=== PATIENT | female | born 1955 | race Two or more races ===

== ENCOUNTER 2016-07-30 22:26 | Emergency (ER) | payer OTHER ==
[2016-07-30 22:32] VITALS: BP 135/78; PULSE 91; TEMP 97.9; BMI 30.6
--- NOTE | 2016-07-30 23:25 | PDOC ---
History of Present Illness - General History Source: Patient Exam Limitations: No Limitations - History of Present Illness Initial Comments: 07/31/16 00:06 The patient is a 60-year-old female with a significant past medical history of hypertension, hypercholesterolemia, and hypothyroidism and presents to the emergency department with chest pain since 7pm tonight. The patient states the pain is located to the midsternal region, and is non-radiating. The patient reports the chest pain is exacerbated with inspiration. She states she has never had this pain before. The patient last ate at 4pm today. She denies any recent travel. The patient denies shortness of breath, headache and dizziness. The patient denies fever, chills, nausea, vomit, diarrhea and constipation. The patient denies dysuria, frequency, urgency and hematuria. Allergies: NKDA Past Surgical History: Social History: Denies toxic habits PCP: Dr. Ye Briones <Heena Ramires - Last Filed: 07/31/16 00:06> <Leah Hoover - Last Filed: 07/31/16 03:29> - General Chief Complaint: Chest Pain Stated Complaint: CHEST PAIN Time Seen by Provider: 07/30/16 23:16 Past History <Heena Ramires - Last Filed: 07/31/16 00:06> - Past Medical History Hypercholesterolemia: Yes Thyroid Disease: Yes (HYPOthyroidism) - Psycho/Social/Smoking Cessation Hx Anxiety: No Suicidal Ideation: No Smoking History: Never smoked Have you smoked in the past 12 months: No Hx Alcohol Use: No Drug/Substance Use Hx: No Substance Use Type: None <Leah Hoover - Last Filed: 07/31/16 03:29> - Past Medical History Allergies/Adverse Reactions: Allergies Allergy/AdvReac Type Severity Reaction Status Date / Time No Known Allergies Allergy Verified 07/30/16 22:32 Home Medications: Ambulatory Orders Levothyroxine [Synthroid -] 25 mcg PO DAILY 10/02/13 Simvastatin [Zocor] 40 mg PO HS 10/02/13 Lisinopril [Prinivil] 20 mg PO DAILY 09/08/15 Review of Systems - Review of Systems Able to Perform ROS?: Yes Comments:: 07/31/16 00:07 CONSTITUTIONAL: Absent: fever, chills, diaphoresis, generalized weakness, malaise, loss of appetite HEENT: Absent: rhinorrhea, nasal congestion, throat pain, throat swelling, difficulty swallowing, mouth swelling, ear pain, eye pain, visual changes CARDIOVASCULAR: Present: (+) chest pain Absent: syncope, palpitations, irregular heart rate, lightheadedness, peripheral edema RESPIRATORY: Absent: cough, shortness of breath, dyspnea with exertion, orthopnea, wheezing, stridor, hemoptysis GASTROINTESTINAL: Absent: abdominal pain, abdominal distension, nausea, vomiting, diarrhea, constipation, melena, hematochezia GENITOURINARY: Absent: dysuria, frequency, urgency, hesitancy, hematuria, flank pain, genital pain MUSCULOSKELETAL: Absent: myalgia, arthralgia, joint swelling SKIN: Absent: rash, itching, pallor HEMATOLOGIC/IMMUNOLOGIC: Absent: easy bleeding, easy bruising, lymphadenopathy, frequent infections ENDOCRINE: Absent: unexplained weight gain, unexplained weight loss, heat intolerance, cold intolerance NEUROLOGIC: Absent: headache, focal weakness or paresthesias, dizziness, unsteady gait, seizure, mental status changes, bladder or bowel incontinence PSYCHIATRIC: Absent: anxiety, depression, suicidal or homicidal ideation, hallucinations. <Heena Ramires - Last Filed: 07/31/16 00:06> *Physical Exam - Vital Signs Last Vital Signs Temp Pulse Resp BP Pulse Ox 97.9 F 91 H 18 135/78 99 07/30/16 22:30 07/30/16 22:30 07/30/16 22:30 07/30/16 22:30 07/30/16 22:30 - Physical Exam Comments: 07/31/16 00:07 GENERAL: Well developed, well nourished. Awake and alert. No acute distress. HEENT: Normocephalic, atraumatic. PERRLA, EOMI. No conjunctival pallor. Sclera are non- icteric. Moist mucous membranes. Oropharynx is clear. NECK: Supple. Full ROM. No JVD. Carotid pulses 2+ and symmetric, without bruits. No thyromegaly. No lymphadenopathy. CARDIOVASCULAR: Regular rate and rhythm. No murmurs, rubs, or gallops. Distal pulses are 2+ and symmetric. PULMONARY: No evidence of respiratory distress. Lungs clear to auscultation bilaterally. No wheezing, rales or rhonchi. ABDOMINAL: Soft. Non-tender. Non-distended. No rebound or guarding. No organomegaly. Normoactive bowel sounds. MUSCULOSKELETAL Normal range of motion at all joints. No bony deformities or tenderness. No CVA tenderness. EXTREMITIES: No cyanosis. No clubbing. No edema. No calf tenderness. SKIN: Warm and dry. Normal capillary refill. No rashes. No jaundice. NEUROLOGICAL: Alert, awake, appropriate. Cranial nerves 2-12 intact. No deficits to light touch and temperature in face, upper extremities and lower extremities. No motor deficits in the in face, upper extremities and lower extremities. Normoreflexic in the upper and lower extremities. Normal speech. Toes are down- going bilaterally. Gait is normal without ataxia. PSYCHIATRIC: Cooperative. Good eye contact. Appropriate mood and affect. <Heena Ramires - Last Filed: 07/31/16 00:06> - Vital Signs Last Vital Signs Temp Pulse Resp BP Pulse Ox 97.9 F 91 H 18 135/78 99 07/30/16 22:30 07/30/16 22:30 07/30/16 22:30 07/30/16 22:30 07/30/16 22:30 <Leah Hoover - Last Filed: 07/31/16 03:29> ED Treatment Course - LABORATORY CBC & Chemistry Diagram: 07/31/16 00:04 07/31/16 00:04 <Leah Hoover - Last Filed: 07/31/16 03:29> Medical Decision Making - Medical Decision Making 07/31/16 00:50 Pt's CBC is normal. 07/31/16 03:28 CXR normal; cardiac enzymes normal. EKG normal 07/31/16 03:28 Pt has gas pain. she will go home with maalox and simethicone OTC. <Leah Hoover - Last Filed: 07/31/16 03:29> *DC/Admit/Observation/Transfer - Attestations Scribe Attestion: 07/31/16 00:08 Documentation prepared by Heena Ramires, acting as forensic medical examiner for Leah Hoover MD. <Heena Ramires - Last Filed: 07/31/16 00:06> - Discharge Dispostion Admit: No <Leah Hoover - Last Filed: 07/31/16 03:29> Diagnosis at time of Disposition: Atypical chest pain, Elevated LFTs - Discharge Dispostion Disposition: HOME Condition at time of disposition: Stable - Referrals Referrals: Ye Briones MD [Primary Care Provider] - Alber Salgado MD [Staff Physician] - - Patient Instructions Printed Discharge Instructions: DI for Atypical Chest Pain
[2016-07-30] MEDS ORDERED: MAG HYDROX/AL HYDROX/SIMETH 30 ML UNIT-DOSE CUP PO ONE (23:50)
[2016-07-31] MEDS ORDERED: MAG HYDROX/AL HYDROX/SIMETH 30 ML UNIT-DOSE CUP ONE (00:10)
[2016-07-31 00:32] LABS: BASOPHIL 0.6 % (0-2.0); EOSINOPHIL 0.6 % (0-4.5); MCH 29.7 pg (25.7-33.7); MCHC 34.3 g/dl (32.0-36.0); MEAN CELL VOLUME 86.4 fl (80-96); MEAN PLT VOLUME 9.8 fl (7.5-11.1); NEUTROPHILS 59.9 % (42.8-82.8); PLATELET COUNT 223 K/MM3 (134-434); RDW 13.4 % (11.6-15.6); WHITE BLOOD COUNT 7.7 K/mm3 (4.0-10.0)
[2016-07-31 00:46] LABS: INR 1.03 (0.82-1.09); PROTHROMBIN TIME (PATIENT) 11.3 SEC (9.98-11.88)
[2016-07-31 00:57] LABS: ANION GAP 9 (8-16); BILIRUBIN,TOTAL 0.2 mg/dL (0.2-1.0); CALCIUM 9.5 mg/dL (8.5-10.1); CO2 26 mmol/L (21-32); CREATININE 0.8 mg/dL (0.55-1.02); GLUCOSE,RANDOM 115 mg/dL (74-106); SGOT/AST 75 U/L (15-37); SGPT/ALT 160 U/L (12-78); TOT PROT 7.6 g/dl (6.4-8.2)
[2016-07-31 00:59] LABS: ALK PHOS 87 U/L (45-117); TROPONIN I < 0.02 ng/ml (0.00-0.05)
--- NOTE | 2016-07-31 18:14 | EKG ---
Test Reason : Blood Pressure : / mmHG Vent. Rate : 068 BPM Atrial Rate : 068 BPM P-R Int : 170 ms QRS Dur : 090 ms QT Int : 398 ms P-R-T Axes : 040 -08 024 degrees QTc Int : 423 ms NORMAL SINUS RHYTHM NORMAL ECG WHEN COMPARED WITH ECG OF 08-SEP-2015 09:17, NO SIGNIFICANT CHANGE WAS FOUND Confirmed by YANNI ACEVEDO MD ([id number]) on 07/31/2016 6:13:25 PM Referred By: Confirmed By:YANNI ACEVEDO MD
== END 2016-07-31 03:16 | disposition home or self-care (01) ==
LOC: JER 22:26
DX: R07.89 Other chest pain (principal); R79.89 Other specified abnormal findings of blood chemistry; I10 Essential (primary) hypertension; E78.00 Pure hypercholesterolemia, unspecified; E03.9 Hypothyroidism, unspecified
CPT/HCPCS: 36415; 71020-TC; 76705-TC; 80053; 82550; 83690; 84484; 85025; 85610; 93005; 93010; 99282-25

== ENCOUNTER 2022-04-13 03:28 | Inpatient (IN) | payer OTHER ==
[2022-04-13] MEDS ORDERED: SODIUM CHLORIDE 0.9% 500 ML INFUS.BAG IV ONE (04:49)
[2022-04-13] MEDS ORDERED: MECLIZINE HCL 25 MG TABLET (FP) PO ONE (04:50)
[2022-04-13] MEDS ORDERED: MECLIZINE HCL 25 MG TABLET (FP) ONE (04:54)
[2022-04-13 05:28] LABS: INR 1.12 (0.83-1.09); PROTHROMBIN TIME (PATIENT) 12.9 SEC (9.7-13.0)
[2022-04-13 05:32] LABS: ALBUMIN 4.1 g/dl (3.4-5.0); BLOOD UREA NITROGEN 12.4 mg/dL (7-18); CALCIUM 9.3 mg/dL (8.5-10.1)
[2022-04-13 05:35] LABS: CREATININE 0.7 mg/dL (0.55-1.3)
[2022-04-13 05:37] LABS: BILIRUBIN,TOTAL 0.3 mg/dL (0.2-1)
[2022-04-13 06:07] LABS: BASO % 0.2 % (0-2.0); EOS % 0.5 % (0-4.5); HEMATOCRIT 36.9 % (32.4-45.2); HEMOGLOBIN 12.3 GM/dL (10.7-15.3); LYMPH % 23.3 % (8-40); MCH 28.1 pg (25.7-33.7); MCHC 33.2 g/dl (32.0-36.0); MEAN CELL VOLUME 84.5 fl (80-96); MEAN PLT VOLUME 9.7 fl (7.5-11.1); MONO % 7.2 % (3.8-10.2); NEUT % 68.8 % (42.8-82.8); PLATELET COUNT 239 10^3/uL (134-434); RBC 4.36 M/mm3 (3.60-5.2); WHITE BLOOD COUNT 10.3 K/mm3 (4.0-10.0)
[2022-04-13 12:22] LABS: EPI CELLS >36 /uL (0-25.1); HYALINE CASTS 1 /uL (0-3.1); URINE APPEARANCE CLOUDY; URINE BACTERIA 3236 /uL (0-1359); URINE BILIRUBIN NEGATIVE (NEGATIVE); URINE COLOR YELLOW; URINE GLUCOSE (UA) NEGATIVE (NEGATIVE); URINE KETONE NEGATIVE (NEGATIVE); URINE LEUK ESTERASE 3+ (NEGATIVE); URINE NITRITE NEGATIVE (NEGATIVE); URINE PROTEIN NEGATIVE (NEGATIVE); URINE RBC 23 /uL (0-23.9); URINE UROBILINOGEN 0.2 mg/dL (0.2-1.0); URINE WBC 68 /uL (0-25.8)
[2022-04-13] MEDS: metoPROLOL SUCCINATE 25 MG TAB.SR.24H (FP) PO SCH ×2 (13:56→21:32)
[2022-04-13] MEDS: D5-1/2NS+20 MEQ KCL - 20 MEQ/1,000 ML INFUS.BAG IV SCH ×2 (13:58→15:52)
[2022-04-13 14:19] VITALS: RESP 18; BMI 31.8
[2022-04-13] MEDS: HEPARIN NA (PORCINE) 5,000 UNITS/ML 1ML VIAL SQ SCH (21:30)
[2022-04-13] MEDS ORDERED: ATORVASTATIN CA 40 MG TABLET (FP) PO SCH (22:00)
[2022-04-14] MEDS ORDERED: LEVOTHYROXINE NA 25 MCG TABLET (FP) PO SCH (07:00)
[2022-04-14] MEDS: metoPROLOL SUCCINATE 25 MG TAB.SR.24H (FP) PO SCH (09:11)
[2022-04-14] MEDS: HEPARIN NA (PORCINE) 5,000 UNITS/ML 1ML VIAL SQ SCH (09:11)
[2022-04-14] MEDS ORDERED: ASPIRIN COATED 81 MG TABLET.EC PO SCH (10:00)
[2022-04-14] MEDS ORDERED: LISINOPRIL 20 MG TABLET PO SCH (10:00)
[2022-04-14] MEDS ORDERED: PANTOPRAZOLE 20 MG TABLET PO SCH (10:00)
[2022-04-14 10:50] VITALS: BP 128/61; PULSE 67; TEMP 98.2
== END 2022-04-14 11:56 | disposition home or self-care (01) | DRG 111 ==
LOC: JER 03:28 → JERBED 06:04 → J7W 12:43 → OBSVTOIN 13:15 → J4S 15:37
PROVIDERS: ADMIT Family Medicine; ATTEND Family Medicine
DX: H83.09 Labyrinthitis, unspecified ear (principal); R42 Dizziness and giddiness; I10 Essential (primary) hypertension; E78.5 Hyperlipidemia, unspecified; E03.9 Hypothyroidism, unspecified
CPT/HCPCS: 0241U-QW; 36415; 70450-TC; 70551-TC; 80053; 81003; 83036; 84484; 85025; 85610; 85730; 86850; 86900; 86901; 87086; 93005; 93010; 99285-25; G0378; J1644

== ENCOUNTER 2022-08-15 13:23 | Emergency (ER) | payer OTHER ==
[2022-08-15 13:38] VITALS: BP 145/67; PULSE 89; RESP 18; TEMP 98.1; BMI 32.5
[2022-08-15] MEDS ORDERED: ACETAMINOPHEN 500 MG TABLET (FP) PO ONE (14:32)
[2022-08-15] MEDS ORDERED: DIPHTH,PERTUSS(ACELL),TET 0.5 ML DISP.SYRIN IM ONE ×2 (14:32→14:45)
[2022-08-15] MEDS ORDERED: ACETAMINOPHEN 500 MG TABLET (FP) ONE (14:45)
== END 2022-08-15 14:59 | disposition home or self-care (01) ==
LOC: JERFT 13:23
PROC: 3E0234Z Introduction of Serum, Toxoid and Vaccine into Muscle, Percutaneous Approach (ICD-10-PCS; principal; 2022-08-15)
DX: M25.571 Pain in right ankle and joints of right foot (principal); W10.8XXA Fall (on) (from) other stairs and steps, initial encounter
CPT/HCPCS: 73562-TC-RT-FY; 73590-TC-RT-FY; 73610-TC-RT-FY; 73630-TC-RT-FY; 90715; 99284-25

== ENCOUNTER 2023-04-24 22:43 | Emergency (ER) | payer MEDICARE, OTHER ==
[2023-04-24 22:58] VITALS: TEMP 98.5; BMI 32.3
[2023-04-24] MEDS ORDERED: METOCLOPRAMIDE HCL INJECTION 10 MG/2 ML VIAL IVPUSH ONE (23:44)
[2023-04-24] MEDS ORDERED: ACETAMINOPHEN 1000 MG/100 ML BAG IVPB ONE (23:44)
[2023-04-24] MEDS ORDERED: SODIUM CHLORIDE 0.9% 500 ML INFUS.BAG IV ONE (23:44)
[2023-04-24] MEDS ORDERED: METOCLOPRAMIDE HCL INJECTION 10 MG/2 ML VIAL ONE (23:49)
[2023-04-24] MEDS ORDERED: ACETAMINOPHEN INJECTION 100 ML IVPB ONE (23:50)
[2023-04-25 02:01] VITALS: BP 135/76; PULSE 76; RESP 19
== END 2023-04-25 02:04 | disposition home or self-care (01) ==
LOC: JER 22:43
PROC: 3E033NZ Introduction of Analgesics, Hypnotics, Sedatives into Peripheral Vein, Percutaneous Approach (ICD-10-PCS; principal; 2023-04-24)
PROC: 3E033GC Introduction of Other Therapeutic Substance into Peripheral Vein, Percutaneous Approach (ICD-10-PCS; 2023-04-24)
DX: G44.209 Tension-type headache, unspecified, not intractable (principal); I10 Essential (primary) hypertension
CPT/HCPCS: 36415; 70450-TC; 80053; 83735; 85025; 93005; 93010; 96374; 96375; 99285-25

== ENCOUNTER 2024-08-29 09:00 | Emergency (ER) | payer MEDICARE ==
[2024-08-29 09:16] VITALS: BP 154/61; PULSE 72; RESP 18; TEMP 98.8; BMI 30.1
[2024-08-29 09:54] LABS: HCG,QUALITATIVE URINE Negative
[2024-08-29] MEDS ORDERED: ACETAMINOPHEN INJECTION 100 ML ONE (10:06)
[2024-08-29] MEDS: ACETAMINOPHEN 1000 MG/100 ML BAG IVPB ONE (10:19)
[2024-08-29] MEDS: SODIUM CHLORIDE 1,000 ML IV STA (10:20)
[2024-08-29 10:29] LABS: ABSOLUTE IMMATURE GRANULOCYTES 0.03 x10^3/uL (0.0-0.031); BASOPHILS # 0.05 x10^3/uL (0.01-0.08); EOSINOPHIL % 0.3 % (0.7-5.8); EOSINOPHILS # 0.04 x10^3/uL (0.04-0.36); HEMATOCRIT 35.4 % (34.1-44.9); HEMOGLOBIN 10.7 g/dL (11.2-15.7); MCHC 30.2 g/dl (32.2-35.5); MEAN CELL VOLUME 85.5 fl (79.4-94.8); MEAN PLT VOLUME 10.9 fl (9.4-12.3); MONOCYTE # 0.94 x10^3/uL (0.24-0.86); MONOCYTE % 7.1 % (4.7-12.5); PLATELET COUNT 253 x10^3/uL (182-369); RDW 14.6 % (12.4-16.4)
[2024-08-29 11:07] LABS: URINE COLOR YELLOW
[2024-08-29 11:08] LABS: POTASSIUM 4.1 mmol/L (3.5-5.1)
[2024-08-29 11:08] LABS: URINE APPEARANCE CLEAR; URINE BILIRUBIN NEGATIVE (NEGATIVE); URINE GLUCOSE (UA) NEGATIVE (NEGATIVE); URINE KETONE NEGATIVE (NEGATIVE); URINE LEUK ESTERASE 3+ (NEGATIVE); URINE NITRITE NEGATIVE (NEGATIVE); URINE PROTEIN NEGATIVE (NEGATIVE); URINE UROBILINOGEN 0.2 mg/dL (0.2-1.0)
[2024-08-29 11:11] LABS: BLOOD UREA NITROGEN 13.2 mg/dL (7-18); CALCIUM 9.3 mg/dL (8.5-10.1)
[2024-08-29 11:12] LABS: ALBUMIN 3.9 g/dl (3.4-5.0)
[2024-08-29 11:15] LABS: CREATININE 0.7 mg/dL (0.55-1.3)
[2024-08-29 11:16] LABS: BILIRUBIN,TOTAL 0.4 mg/dL (0.2-1)
[2024-08-29] MEDS ORDERED: CEFTRIAXONE 1 G/50 ML PREMIX 50 ML IVPB ONE (11:36)
[2024-08-29] MEDS: CEFTRIAXONE 1 GM in DEXTROSE 5%-WATER - 100 ML IVPB ONE (11:55)
[2024-08-29 11:58] LABS: EPI CELLS 2 /uL (0-25.1); HYALINE CASTS 5 /uL (0-3.1); URINE BACTERIA 113 /uL (0-1359); URINE RBC 4 /uL (0-23.9); URINE WBC 212 /uL (0-25.8)
== END 2024-08-29 12:30 | disposition home or self-care (01) ==
LOC: JER 09:00
PROC: 3E03329 Introduction of Other Anti-infective into Peripheral Vein, Percutaneous Approach (ICD-10-PCS; principal; 2024-08-29)
PROC: 3E033NZ Introduction of Analgesics, Hypnotics, Sedatives into Peripheral Vein, Percutaneous Approach (ICD-10-PCS; 2024-08-29)
PROC: 3E0337Z Introduction of Electrolytic and Water Balance Substance into Peripheral Vein, Percutaneous Approach (ICD-10-PCS; 2024-08-29)
DX: N39.0 Urinary tract infection, site not specified (principal)
CPT/HCPCS: 36415; 80053; 81003; 84703; 85025; 87086; 96361; 96365; 96375; 99284-25; J0131